=== PATIENT | male | born 1945 | race Caucasian/White ===

== ENCOUNTER 2018-09-13 06:15 | Day surgery (SDC) | payer MEDICARE ==
[2018-09-11 14:00] LABS: HEMATOCRIT 41.1 % (42.0-54.0); HEMOGLOBIN 14.1 g/dL (13.5-17.5); MCH 31.6 pg (26.0-34.0); MCHC 34.3 g/dL (31.0-37.0); MCV 92.2 fL (80.0-100.0); MEAN PLATELET VOLUME 11.8 fL (7.4-10.4); RBC 4.46 10x6/uL (4.20-6.10); RDW 13.1 % (11.5-14.5); WBC 7.8 10x3/uL (4.8-10.8)
[~2018-09-13] VITALS: Ht 170.2 cm; Wt 65.8 kg
[~2018-09-13 06:15] MED LIST: ALBUTEROL SULF8.5 GM INH; MYSOLINE250 MG PO; TENORMIN50 MG PO; VOLTAREN75 MG PO; ZOCOR40 MG PO
[2018-09-13] MEDS ORDERED: FISH OIL 1,0001 CA1 PO (07:28)
[2018-09-13 07:38] VITALS: BP 117/60; Ht 170.2 cm; Wt 65.8 kg
--- NOTE | 2018-09-13 10:30 | NUR ---
REC'D FROM SURGERY. FAMILY AT BEDSIDE. ZO RILEY SERVED ALONG WITH A COLA. DR MONROY TALKING WITH PT AND FAMILY.
--- NOTE | 2018-09-13 11:00 | NUR ---
TOLERATED DIET. AMBULATED TO BATHROOM AND VOIDED WITHOUT DIFFICULTY. BLOOD NOTED IN URINE. IV DC'D WITH CATHETER INTACT.
--- NOTE | 2018-09-13 11:10 | NUR ---
WRITTEN AND VERBAL DC INST. GIVEN TO PT. VERBALIZED UNDERSTANDING.
--- NOTE | 2018-09-13 11:25 | NUR ---
DC'D HOME WITH FAMILY VIA PRIVATE VEHICLE. TAKEN TO VEHICLE VIA WC. STABLE AT TIME OF DC.
--- NOTE | 2018-09-13 11:53 | OP ---
PATIENT NAME: DANO GUILLERMO MEDICAL RECORD: [id number] :44 LOCATION:D.[facility] ADMISSION DATE: SURGEON: JAGUAR MONROY MD DATE OF OPERATION: 09/13/2018 SURGEON: Jaguar Monroy MD ANESTHESIA: TIVA by Brady Jaime CRNA DIAGNOSES: Elevated PSA of 4.7 on 07/26/2018, bladder outlet obstruction. PROCEDURES: Cystoscopy, transrectal ultrasound, and prostate biopsy. FINDINGS: On cystoscopy, no urethral strictures. There is bilateral lateral lobe obstruction with no median lobe. Single ureteral orifices bilaterally in the bladder. No bladder tumors were seen. On transrectal ultrasound, 28 gram prostate with no distinct hypoechoic areas or stones in the prostate. SPECIMENS: Prostate biopsy cores. BLOOD LOSS: None. CLINICAL HISTORY: This is a 72-year-old male, who has an elevated PSA of 4.7. The PSA previously was normal. He has significant voiding symptoms including hesitancy, slow urinary flow, and postvoid dribbling. He is a 2-pack per day smoker since he was a teenager and he quit 20 years ago. He has been treating his BPH with Veracyte supplements. He comes today to have cystoscopy as well as transrectal ultrasound and prostate biopsy. HE IS ALLERGIC TO PENICILLIN. He was given Levaquin 500 mg IV wagon winder to the OR. DESCRIPTION OF PROCEDURE: The patient was given IV sedation. He was then placed into dorsal lithotomy position. He was prepped and draped. Cystoscopy was performed using a 17-Lithuanian cystoscope with 30-degree lens. Normal saline was used for irrigation. The findings are as outlined above. The bladder was then emptied through the cystoscope sheath and the scope was removed. We then introduced the transrectal ultrasound probe and obtained prostate size measurements. No distinct hypoechoic areas or prostatic stones were seen. Sextant biopsies were obtained with at least 3 cores from each sextant. Once all the specimens were obtained, the procedure was terminated. I will see the patient in followup next week to review his pathology with him. If he has no prostate cancer on the biopsy then he would be a good candidate for the UroLift procedure to treat his bladder outlet obstruction. TRANSINT:[id number] Voice Confirmation ID: [id number] DOCUMENT ID: [id number] JAGUAR MONROY MD at 1153 CC: [id number] DICTATION DATE: 09/13/18 1031 DIRECTOR FINANCIAL ANALYSIS: 09/13/18 1122 [facility] 09/13/18 [address] [place] [address]
== END 2018-09-13 11:25 | disposition home or self-care (01) ==
LOC: D.OPS 06:15
PROVIDERS: Anesthesiology
DX: N40.1 Benign prostatic hyperplasia with lower urinary tract symptoms (principal); C61 Malignant neoplasm of prostate; N32.0 Bladder-neck obstruction; R39.11 Hesitancy of micturition; R39.14 Feeling of incomplete bladder emptying; R39.12 Poor urinary stream; F17.210 Nicotine dependence, cigarettes, uncomplicated; Z88.0 Allergy status to penicillin; Z01.812 Encounter for preprocedural laboratory examination

== ENCOUNTER → 2018-10-17 07:43 | Outpatient (CLI) | payer MEDICARE ==
[2018-09-13 07:38] VITALS: BMI 22.7
[~2018-10-17 07:43] MED LIST changes: +FISH OIL 1,0001 CA1 PO
== END | disposition home or self-care (01) ==
LOC: D.NM 07:43
DX: C61 Malignant neoplasm of prostate (principal)

== ENCOUNTER 2018-10-25 06:35 | Day surgery (SDC) | payer MEDICARE ==
[2018-10-23 14:53] LABS: HEMATOCRIT 42.4 % (42.0-54.0); HEMOGLOBIN 14.4 g/dL (13.5-17.5); MCH 31.4 pg (26.0-34.0); MCV 92.4 fL (80.0-100.0); MEAN PLATELET VOLUME 11.7 fL (7.4-10.4); RBC 4.59 10x6/uL (4.20-6.10); RDW 13.2 % (11.5-14.5); WBC 7.7 10x3/uL (4.8-10.8)
[~2018-10-25] VITALS: Ht 170.2 cm; Wt 65.8 kg
[2018-10-25 07:02] VITALS: BP 139/69; Ht 170.2 cm; Wt 65.8 kg
--- NOTE | 2018-10-25 11:50 | OP ---
PATIENT NAME: DANO GUILLERMO MEDICAL RECORD: [id number] :44 LOCATION:D.[facility] ADMISSION DATE: SURGEON: KULWINDER MONROY MD DATE OF OPERATION: 10/25/2018 SURGEON: Kulwinder Monroy MD ANESTHESIA: TIVA by Brady Jaime CRNA DIAGNOSES: Prostate cancer stage T1c, Denver score 3+3 with bladder outlet obstruction. PSA is 4.7. IPSS score is 21. Quality of life score is 5 and prostate volume was 28 mL. PROCEDURE: UroLift times 4 implants. FINDINGS: Bilateral lateral lobe obstruction. Single ureteral orifices bilaterally with no bladder tumors. ESTIMATED BLOOD LOSS: Minimal. CLINICAL HISTORY: This is a 72-year-old male, who was found to have an elevated PSA of 4.7. On transrectal ultrasound, his prostate was 28 grams size. His biopsy showed prostate cancer in the right mid zone and left base. Both areas had Denver score of 3+3. Stage is T1c. He had a metastatic workup, which was negative. Genomic testing was of low risk for metastatic disease. He wants to be treated with observation. In the meantime, he has trouble voiding. His IPSS score is 21 with a quality of life score is 5. We will proceed with a UroLift procedures so that he can void properly. HE IS ALLERGIC TO PENICILLIN. He was given Levaquin benefits consultant to the OR. DESCRIPTION OF PROCEDURE: The patient was given IV sedation. He was then placed in the dorsal lithotomy position and prepped and draped. Cystoscopy was performed. Findings are as outlined above. We placed 2 units of the bladder neck level. These were placed 1.5 cm distal to the bladder neck. These were placed in the anterior lateral lobe. The implants went in without any problems. Another 2 units were placed, one on each side at the level of the verumontanum at the anterior lateral lobes. The patient had a nice open urethral channel at the end of the procedure. The bladder was emptied through the scope sheath and the patient was awakened and brought to the preoperative holding area. I will see him in followup in 1 months' time. TRANSINT:[id number] Voice Confirmation ID: [id number] DOCUMENT ID: [id number] KULWINDER MONROY MD at 1150 CC: [id number] DICTATION DATE: 10/25/1846 GLOBAL PRODUCT MANAGER: 10/25/18 1124 [facility] [address] [facility] [place], [facility]
== END 2018-10-25 11:00 | disposition home or self-care (01) ==
LOC: D.OPS 06:35
PROVIDERS: Anesthesiology; ATTEND Urology
DX: C61 Malignant neoplasm of prostate (principal); N32.0 Bladder-neck obstruction; Z01.812 Encounter for preprocedural laboratory examination

== ENCOUNTER 2019-01-31 05:25 | Day surgery (SDC) | payer MEDICARE ==
[~2019-01-31] VITALS: Ht 170.2 cm; Wt 62.6 kg
[2019-01-31 06:02] LABS: BASOPHILS 0.5 % (0-2); EOSINOPHILS 10.6 % (0-7); HEMATOCRIT 41.1 % (42.0-54.0); HEMOGLOBIN 13.9 g/dL (13.5-17.5); IMMATURE GRANULOCYTES 0.2 % (0-5); LYMPHOCYTES 17.9 % (15-50); MCH 30.6 pg (26.0-34.0); MCHC 33.8 g/dL (31.0-37.0); MCV 90.5 fL (80.0-100.0); MEAN PLATELET VOLUME 11.7 fL (7.4-10.4); MONOCYTES 7.5 % (2-11); NEUTROPHILS 63.3 % (40-80); RBC 4.54 10x6/uL (4.20-6.10); RDW 12.8 % (11.5-14.5)
[2019-01-31 06:03] LABS: PLATELET COUNT 132 10x3/uL (130-400)
[2019-01-31 06:05] LABS: ANION GAP 12.3 mmol/L (8-16); CALCIUM 8.8 mg/dL (8.5-10.1); CREATININE - SERUM 1.2 mg/dL (0.6-1.3); POTASSIUM - SERUM 4.3 mmol/L (3.5-5.1)
[2019-01-31 06:14] LABS: APTT 31.7 SECONDS (22.8-39.4); INR 1.16 (0.85-1.17); PROTIME 14.3 SECONDS (11.6-15.0)
[2019-01-31 07:08] VITALS: BP 145/71; Ht 170.2 cm; Wt 62.6 kg
[2019-01-31] MEDS ORDERED: HYDROCODON-ACE1 EA10 PO (08:39)
--- NOTE | 2019-01-31 09:09 | NUR ---
0902 - PT AWAKENING, OPA OUT
--- NOTE | 2019-01-31 09:20 | NUR ---
PT HAS PROFOUND NON-PRODUCTION COUGH. PT STATES THIS IS NORMAL FOR HIM
--- NOTE | 2019-01-31 09:48 | NUR ---
0949 ALBUTEROL AEROSOL INHATION TREATMENT BY RESPIRATORY THERAPIST IS COMPLETED.
--- NOTE | 2019-01-31 09:52 | NUR ---
0917 [facility] WAS DC'D AT 0940. PT'S O2 SAT IS 96% ON RA. BILATERAL EXPIRATORY WHEEZE IS STILL PRESENT. PT NOT COUGHING AT PRESENT. DRESSING REMAINS DRY AND INTACT.
--- NOTE | 2019-02-01 10:09 | OP ---
PATIENT NAME: DANO GUILLERMO MEDICAL RECORD: [id number] :44 LOCATION:D.[facility] ADMISSION DATE: SURGEON: SERGIO METCALF MD DATE OF OPERATION: 01/31/2019 PREOPERATIVE DIAGNOSES: 1. Ventral hernia. 2. Chronic obstructive pulmonary disease. 3. Hypertension. 4. Hypercholesterolemia. POSTOPERATIVE DIAGNOSES: 1. Ventral hernia. 2. Chronic obstructive pulmonary disease. 3. Hypertension. 4. Hypercholesterolemia. PROCEDURE: Ventral hernia repair with 4.3 cm Ventralight mesh. SURGEON: Sergio Metcalf MD REPORT OF PROCEDURE: The patient's abdomen was prepped and draped in sterile fashion. A semicircular incision was made on the inferior aspect of the umbilicus. Electrocautery was used to dissect through the subcutaneous tissues. We came through the hernia sac, which revealed fatty tissue present within it. This was pushed back down into the abdominal cavity. We then cleared off the fascia above and below and inserted a 4.3 cm mesh in an underlay fashion. This was sutured down on all 4 sides using interrupted 0 Prolenes. We then irrigated out the wound with normal saline and assured there was no sign of any bleeding. The fascia was then closed transversely overlying the mesh using a running 0 Vicryl. The umbilicus was tacked down to the fascia using interrupted 3-0 Vicryl and the subcutaneous tissues were reapproximated with interrupted 3-0 Vicryls. A total of 10 mL of 0.25% Marcaine with epinephrine was infused into the surrounding tissues and then the skin was closed with running subcutaneous 5-0 Monocryl. COMPLICATIONS: None. CONDITION: Stable. ANESTHESIA: General endotracheal and local. BLOOD LOSS: Minimal. TRANSINT:[id number] Voice Confirmation ID: [id number] DOCUMENT ID: [id number] SERGIO METCALF MD at 1009 CC: ALFREDO JAEGER MD [id number] DICTATION DATE: 01/31/19 0845 FIELD RECRUITER: 01/31/19 0908 [facility] 01/31/19 [address] [place] [address]
== END 2019-01-31 12:30 | disposition home or self-care (01) ==
LOC: D.OPS 05:25 → D.PAN 08:00 → D.OPS 08:00
PROVIDERS: Anesthesiology; ATTEND Surgery
DX: K43.9 Ventral hernia without obstruction or gangrene (principal); J44.9 Chronic obstructive pulmonary disease, unspecified; I10 Essential (primary) hypertension; E78.00 Pure hypercholesterolemia, unspecified; Z01.812 Encounter for preprocedural laboratory examination